=== PATIENT | male | born 1955 | race Caucasian/White ===

== ENCOUNTER 2017-12-07 16:58 | Inpatient (IN) ==
[2017-12-07 17:49] LABS: ABG Base Excess -1 mEq/L (-2 to 3); ABG HCO3 25 mEq/L (21-27); ABG Oxygen Saturation 97 % (95-98); ABG PCO2 49 mmHg (35-45); ABG PH 7.33 pH Units (7.32-7.45); ABG PO2 95 mmHg (85-104); ABG TCO2 27 mEq/L (20-26); Blood Gas Respiration Rate 16; Blood Gas VT 550 cc
[2017-12-07 18:44] LABS: Basophils % 0.2 %; Eosinophils % 0.1 %; Hemoglobin 14.1 g/dL (12.9-16.9); Immature Granulocytes % 0.6 % (0-4); Lymphocytes # 0.8 K/mcL (0.6-4.6); Lymphocytes % 5.7 %; Mean Corpuscular HGB Conc 34.4 g/dL (31.6-35.5); Mean Corpuscular Hemoglobin 29.3 pg (28.0-33.3); Mean Corpuscular Volume 85.1 fL (83.0-100.0); Mean Platelet Volume 8.8 fL (9.4-12.4); Monocytes # 0.9 K/mcL (0.0-1.3); Monocytes % 6.5 %; Neutrophils # 11.8 K/mcL (1.6-8.9); Platelet Count 171 K/mcL (140-400); Red Blood Count 4.82 M/mcL (4.19-5.50); Red Cell Distribution Width 13.3 % (11.5-14.5); Segmented Neutrophils % 86.9 %
[2017-12-07 18:48] LABS: VBG Ionized Calcium 1.03 mmol/L (1.15-1.35)
[2017-12-07] MEDS: Heparin 25,000 UNIT/500 ML D5W 25,000 UNIT/500 ML BAG IVC SCH (19:00)
[2017-12-07 19:01] LABS: BUN/Creatinine Ratio 15 (6-26); Blood Urea Nitrogen 18 mg/dL (8-23); Calcium 8.3 mg/dL (8.6-10.3); Carbon Dioxide 25 mEq/L (23-29); Chloride 110 mEq/L (98-107); Glucose 190 mg/dL (70-105); Magnesium 1.9 mg/dL (1.6-2.6); Osmolality,Calculated 301 (280-300); Phosphorous 3.2 mg/dL (2.7-4.5); Potassium 4.1 mEq/L (3.5-5.1); Sodium 142 mEq/L (136-145); eGFR For African Americans > 60 (> 60); eGFR For Non-African Americans > 60 (> 60)
[2017-12-07] MEDS ORDERED: Naloxone 0.4 MG/ML INJ IVP PRN (19:43)
[2017-12-07] MEDS ORDERED: Vecuronium 50 MG in 0.9 % Sodium Chloride 150 ML IVC SCH (20:00)
[2017-12-07] MEDS ORDERED: Amiodarone Premix 150 MG/100 ML BAG IVPB ONE (20:01)
--- NOTE | 2017-12-07 20:19 | Internal Med History&Physical ---
Date of Encounter: 12/08/17 Time of Encounter: 20:00 Internal Medicine - H&P: HPI Chief complaint: Cardiac arrest Admitted From: Hospital to Hospital Transfer Plans for Post Hospital Care: Home History of present illness: Mr. Duff is a 62 year old male History obtained via previous records in chart as patient is intubated, and family not available. Patent was found unresponsive earlier today, ACLS initiated in the field and patient was taken to [facility]. There he was found to be in PEA, an IO was placed and epinephrine was given. He was in atrial fibrillation in the 130s, and amiodarone was started. Cardiology was called and a review of his EKG was made. It was then agreed that the patient be transferred to [place] for further management. Patient is currently intubated and sedated. Past Med Surg Social Fam HX - Past Medical History Medical history: no medical history - Social History Smoking Status: Unknown if ever smoked Smokeless Tobacco Status: No Alcohol use: none Drug use: none Internal Medicine - H&P: Meds 3 Allergy/AdvReac Type Severity Reaction Status Date / Time codeine Allergy Rash Verified 12/07/17 21:28 All Systems PM: A 10-system review of systems was performed and is negative for pertinent findings except as documented above in the HPI. - Constitutional Vitals: Temp Pulse Resp BP Pulse Ox 97.4 F L 98 16 167/95 94 12/07/17 20:00 12/07/17 20:00 12/07/17 20:00 12/07/17 20:00 12/07/17 20:00 General appearance: Present: A&O X 0, no acute distress. Absent: cooperative - Head Head exam: Present: normal inspection - Eye Pupils: Present: mydriatic Additional comments: Left scleral cloudin and scarring - Respiratory Respiratory exam: Present: CTAB. Absent: respiratory distress, wheezes - Cardiovascular Cardiovascular exam: Present: irregular rhythm. Absent: diastolic murmur, systolic murmur - GI/Abdominal GI/Abdominal exam: Present: normal bowel sounds, soft. Absent: tenderness - Extremities Exam Extremities exam: Present: warm, radial pulses palpable and symmetrical. Absent : mottling, pedal edema - Skin Skin exam: Present: dry, normal color, warm Internal Med - H&P Results - Labs CBC & Chem 7: 12/07/17 21:07 12/08/17 04:35 Labs: Short CBC 12/07/17 Range/Units 18:30 WBC 13.6 H (4.3-11.1) K/mcL Hgb 14.1 (12.9-16.9) g/dL Hct 41.0 (37.5-50.1) % Plt Count 171 (140-400) K/mcL Neutrophils # 11.8 H (1.6-8.9) K/mcL BMP 12/07/17 18:30 Sodium 142 Potassium 4.1 Chloride 110 H Carbon Dioxide 25 BUN 18 Creatinine 1.21 Glucose 190 H Calcium 8.3 L - Impressions ITS Impressions Chest X-Ray 12/07/17 18:15 IMPRESSION: 1. New gastric tube with the tip not seen but likely in or beyond the gastric antrum. The sideport is within the distal gastric body. 2. Left pleural effusion with underlying left basilar atelectasis and/or pneumonia. 3. New right perihilar opacity potentially representing asymmetric edema or pneumonia. 4. Pulmonary vascular congestion and/or central vascular crowding. D/ / Mega Trimble MD / Mega Trimble MD Interpreting Provider: Mega Trimble MD Head CT 12/07/17 18:15 IMPRESSION: No acute intracranial abnormality. D/ / Mega Oliveira MD / Mega Oliveira MD Interpreting Provider: Mega Oliviera MD - Assessment and plan (1) Cardiac arrest Current Visit: No Status: Acute Assessment and plan: Patient found unresponsive, now intubated, sedated. Blood pressures stable at 152/95. Pulses felt in all extremities. Dr. Carrillo of Cardiology contacted, states that the patient does not meet criteria for emergent cath tonight. Unknown how long patient was unresponsive as it was unwitnessed. Will hold off on hypothermia protocol. Will work up other non-cardiac causes of cardiac arrest and check labs and get CT angio of chest to rule out PE. Cardiology will see in the morning Continue current management and monitoring. Heparin drip CT angio Ordered labs, follow up troponins (2) Atrial fibrillation Current Visit: No Status: Acute Assessment and plan: Patient now on Amiodarone, rate improved to 70-80s. Continue to monitor Follow up cardiology recommendations. Qualifiers: Atrial fibrillation type: unspecified Qualified Code(s): I48.91 - Unspecified atrial fibrillation (3) Aspiration pneumonia Current Visit: Yes Status: Acute Assessment and plan: As evidenced by patient's CT angiogram, patient does have lower lobe consolidation in basal right and left lungs, as well as nonspecific patchy ground glass attenuation in the left lung apex. Patient was found down, could have aspirated at that time. Start Unasyn IV, follow up blood cultures Qualifiers: Qualified Code(s): J69.0 - Pneumonitis due to inhalation of food and vomit (4) Leukocytosis Current Visit: Yes Status: Acute Assessment and plan: Could be secondary to possible aspiration pneumonia, white count increased from previous. Continue to monitor Start Unasyn Follow up blood cultures. Qualifiers: Qualified Code(s): D72.829 - Elevated white blood cell count, unspecified (5) Pleural effusion, left Current Visit: Yes Status: Acute Assessment and plan: Seen on chest x-ray, breath sounds clear to auscultation. Continue to monitor respiratory status. (6) DVT prophylaxis Current Visit: Yes Status: Acute Assessment and plan: Patient on heparin drip. - Time Spent With Patient Total time spent is greater than 50% in coordination of care (as documented) at patient's floor/unit and/or counseling patient: Greater than 35 minutes
[2017-12-07] MEDS ORDERED: Lacri-Lube 3.5 GM TUBE BOTH EYES PRN (20:31)
[2017-12-07] MEDS ORDERED: *HR* Heparin 5,000 UNIT/ML VIAL IVP ONE (21:17)
[2017-12-07] MEDS ORDERED: *HR* Heparin 5,000 UNIT/ML VIAL IVP PRN ×2 (21:17)
[2017-12-07 21:21] LABS: Basophils % 0.1 %; Eosinophils % 0.1 %; Hematocrit 44.3 % (37.5-50.1); Hemoglobin 15.5 g/dL (12.9-16.9); Immature Granulocytes % 0.7 % (0-4); Lymphocytes # 1.3 K/mcL (0.6-4.6); Lymphocytes % 8.5 %; Mean Corpuscular Hemoglobin 29.6 pg (28.0-33.3); Mean Corpuscular Volume 84.5 fL (83.0-100.0); Mean Platelet Volume 8.9 fL (9.4-12.4); Monocytes # 0.9 K/mcL (0.0-1.3); Neutrophils # 12.8 K/mcL (1.6-8.9); Platelet Count 173 K/mcL (140-400); Red Blood Count 5.24 M/mcL (4.19-5.50); Red Cell Distribution Width 13.3 % (11.5-14.5); Segmented Neutrophils % 84.6 %
[2017-12-07] MEDS: FentaNYL (PF) 1,000 MCG in 0.9 % Sodium Chloride 80 ML IVC SCH (21:21)
[2017-12-07] MEDS: Chlorhexidine Rinse 15 ML MOUTHWASH MM SCH (21:22)
[2017-12-07] MEDS ORDERED: Amiodarone Premix 360 MG/200 ML BAG IVC ONE (21:24)
[2017-12-07 21:28] LABS: Heparin anti-factor XA UFH 0.47 IU/mL (0.30-0.70)
[2017-12-07 21:29] LABS: INR 1.1; Prothrombin Time 12.1 Seconds (9.4-12.1)
[2017-12-07 21:37] LABS: BUN/Creatinine Ratio 15 (6-26); Blood Urea Nitrogen 16 mg/dL (8-23); Calcium 8.2 mg/dL (8.6-10.3); Carbon Dioxide 21 mEq/L (23-29); Chloride 110 mEq/L (98-107); Glucose 145 mg/dL (70-105); Magnesium 1.9 mg/dL (1.6-2.6); Osmolality,Calculated 296 (280-300); Phosphorous 2.6 mg/dL (2.7-4.5); Sodium 141 mEq/L (136-145); eGFR For African Americans > 60 (> 60); eGFR For Non-African Americans > 60 (> 60)
[2017-12-07] MEDS ORDERED: Isovue-370 500 ML INFUS..BTL IV ONE (21:40)
[2017-12-07 21:43] LABS: Troponin I 0.06 ng/mL (< 0.04)
[2017-12-07] MEDS: Amiodarone Premix 360 MG/200 ML BAG IVC SCH (22:19)
[2017-12-07] MEDS: Lacri-Lube 3.5 GM TUBE BOTH EYES SCH (23:27)
[2017-12-07 23:31] LABS: Amphetamine Screen,Urine Negative ng/mL (Cutoff=1000); Barbiturate Screen,Urine Negative ng/mL (Cutoff=200); Benzodiazepines Screen,Urine Negative ng/mL (Cutoff=200); Cannabinoid Screen,Urine Negative ng/mL (Cutoff = 50); Cocaine Screen,Urine Negative ng/mL (Cutoff= 300); Opiate Screen,Urine Negative ng/mL (Cutoff=300); Phencyclidine Screen,Urine Negative ng/mL (Cutoff=25)
[2017-12-08 04:33] LABS: ABG Base Excess 3 mEq/L (-2 to 3); ABG HCO3 28 mEq/L (21-27); ABG Oxygen Saturation 98 % (95-98); ABG PCO2 42 mmHg (35-45); ABG PH 7.44 pH Units (7.32-7.45); ABG PO2 95 mmHg (85-104); ABG TCO2 29 mEq/L (20-26); Blood Gas Modality ASSIST CONTROL; Blood Gas Respiration Rate 16; Blood Gas VT 550 cc
[2017-12-08] MEDS: Lacri-Lube 3.5 GM TUBE BOTH EYES SCH ×5 (04:37→21:22)
[2017-12-08] MEDS ORDERED: *HR* Labetalol 20 MG/4 ML SYRINGE IVP PRN (04:39)
[2017-12-08 04:49] LABS: VBG Ionized Calcium 0.98 mmol/L (1.15-1.35)
[2017-12-08 05:14] LABS: BUN/Creatinine Ratio 13 (6-26); Blood Urea Nitrogen 12 mg/dL (8-23); Calcium 8.2 mg/dL (8.6-10.3); Carbon Dioxide 23 mEq/L (23-29); Chloride 105 mEq/L (98-107); Creatine Kinase 115 Units/L (30-223); Glucose 169 mg/dL (70-105); Magnesium 2.2 mg/dL (1.6-2.6); Osmolality,Calculated 292 (280-300); Potassium 3.5 mEq/L (3.5-5.1); Sodium 139 mEq/L (136-145); eGFR For African Americans > 60 (> 60); eGFR For Non-African Americans > 60 (> 60)
--- NOTE | 2017-12-08 07:35 | Pulmonology Consult Note ---
<GeorginaErlinda espinosa M - Last Filed: 12/08/17 15:59> Date of Encounter: 12/08/17 Medications and Allergies Unable To Obtain [Unable to Obtain] 12/08/17 [History] 3 Allergy/AdvReac Type Severity Reaction Status Date / Time codeine Allergy Rash Verified 12/07/17 21:28 All Systems: The remainder of the systems were reviewed and are negative Physical Examination Vital Signs: Vital Signs, Last 4 Hours Pulse Resp BP Pulse Ox 12/08/17 15:44 70 12/08/17 15:00 64 16 83/56 97 12/08/17 14:00 64 16 93/57 97 12/08/17 13:05 16 88/55 94 12/08/17 13:00 65 16 97/59 97 12/08/17 12:00 67 16 88/55 97 Ventilator Settings Ventilator Settings: Ventilator Settings, Last 8 Hours Ventilator Tidal Volume 550 Setting Ventilator Tidal Volume 550 Setting Ventilator Tidal Volume 550 Setting Ventilator Tidal Volume 550 Setting Ventilator Tidal Volume 550 Setting Ventilator Tidal Volume 550 Setting Ventilator Tidal Volume 550 Setting Ventilator Tidal Volume 550 Setting Ventilator Tidal Volume 550 Setting Ventilator Tidal Volume 550 Setting Ventilator Respiratory Rate 16 Setting Ventilator Respiratory Rate 16 Setting Ventilator Respiratory Rate 16 Setting Ventilator Respiratory Rate 16 Setting Ventilator Respiratory Rate 16 Setting Ventilator Respiratory Rate 16 Setting Ventilator Respiratory Rate 16 Setting Ventilator Respiratory Rate 16 Setting Ventilator Respiratory Rate 16 Setting Ventilator Respiratory Rate 16 Setting Actual Respiratory Rate 16 Actual Respiratory Rate 16 Actual Respiratory Rate 16 Actual Respiratory Rate 16 Actual Respiratory Rate 16 Actual Respiratory Rate 16 Actual Respiratory Rate 16 Actual Respiratory Rate 16 Actual Respiratory Rate 16 Actual Respiratory Rate 16 Positive End Expiratory 5 Pressure Positive End Expiratory 5 Pressure Positive End Expiratory 5 Pressure Positive End Expiratory 5 Pressure Positive End Expiratory 5 Pressure Positive End Expiratory 5 Pressure Positive End Expiratory 5 Pressure Positive End Expiratory 5 Pressure Positive End Expiratory 5 Pressure Positive End Expiratory 5 Pressure Peak Inspiratory Airway 22 Pressure Peak Inspiratory Airway 22 Pressure Peak Inspiratory Airway 25 Pressure Peak Inspiratory Airway 22 Pressure Peak Inspiratory Airway 22 Pressure Peak Inspiratory Airway 24 Pressure Peak Inspiratory Airway 22 Pressure Peak Inspiratory Airway 22 Pressure Peak Inspiratory Airway 25 Pressure Peak Inspiratory Airway 22 Pressure Results - Laboratory Findings CBC and BMP: 12/07/17 21:07 12/08/17 04:35 ABG ABG pH 7.44 pH Units (7.32-7.45) 12/08/17 04:27 ABG pCO2 42 mmHg (35-45) 12/08/17 04:27 ABG pO2 95 mmHg (85-104) 12/08/17 04:27 ABG O2 Saturation 98 % (95-98) 12/08/17 04:27 PT/INR, D-dimer PT 12.1 Seconds (9.4-12.1) 12/07/17 21:07 Abnormal lab findings: Abnormal lab results WBC 15.1 K/mcL (4.3-11.1) H 12/07/17 21:07 MPV 8.9 fL (9.4-12.4) L 12/07/17 21:07 Neutrophils # 12.8 K/mcL (1.6-8.9) H 12/07/17 21:07 APTT 100.7 Seconds (26.0-36.0) H D 12/07/17 18:30 ABG HCO3 28 mEq/L (21-27) H 12/08/17 04:27 ABG Total CO2 29 mEq/L (20-26) H 12/08/17 04:27 Glucose 169 mg/dL (70-105) H 12/08/17 04:35 POC Glucose 144 mg/dL (70-99) H 12/08/17 11:54 Calcium 8.2 mg/dL (8.6-10.3) L 12/08/17 04:35 Venous Ioniz Calcium 1.08 mmol/L (1.15-1.35) L 12/08/17 12:47 AST 79 Units/L (13-39) H 12/08/17 04:35 ALT 100 Units/L (7-52) H 12/08/17 04:35 Troponin I 0.07 ng/mL (< 0.04) H* 12/08/17 10:22 Serum Total Protein 6.1 g/dL (6.4-8.9) L 12/08/17 04:35 Globulin 2.1 g/dL (2.4-3.5) L 12/08/17 04:35 - Microbiology Findings Microbiology Findings: Microbiology, Last 48 Hours 12/08/17 07:03 Blood Culture - Preliminary Peripheral Venipuncture Culture is incubating and being continuously monitored for growth. Final report to follow. 12/08/17 07:03 Blood Culture - Preliminary Peripheral Venipuncture Culture is incubating and being continuously monitored for growth. Final report to follow. - Clinical Findings Intake & Output: Intake & Output 12/07/17 12/08/17 12/08/17 23:59 07:59 15:59 Intake Total 993 / 993 1884 / 1884 Output Total 800 / 800 1275 / 1275 3985 / 3985 Balance -800 / -800 -282 / -282 -2101 / -2101 Weight 76 kg 76 kg Consult Discharge Plan - Plan Referrals: NONE,PCP [Primary Care Provider] - - Attending Attestation I examined this patient and my medical decision-making was reviewed with the Resident Physician. I agree with the documented findings, disposition and treatment plan as described except to the extent set forth below. Patient seen and examined. Labs, radiology, chart personally reviewed. 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 Neurology consult that. EEG done. Pulmonary: Acceptable oxygenation and ventilation and patient is not breathing over the vent which is very concerning. No changes needed. Cardiovascular: I have discussed with the cardiology team regarding in my opinion cardiac catheterization and deferred final decision to have cardiac catheterization to cardiology team. Patient is hypotensive again suspect cardiac in nature and central line was placed and vasopressor started mainly for maintaining perfusion for the organs if patient will end up with the continuation. LOOP is aware of patient. GI: Nutrition per dietary and GI prophylaxis per routine Heme: DVT prophylaxis per routine ID: I do not feel this is infectious in nature Renal; urine out put and renal funtion reviewed Endorcine: blood glucose is monitored Lines: all lines checked and no evidence of infections Skin: skin care to prevent pressure ulcers per nursing routine care I spent 35 min of Critical Care time with this patient. It involved decision making of high complexity to assess, manipulate, and support vital organ system failure and/or to prevent further life threatening deterioration of the patient' s condition. The time involved in the performance of separately reportable procedures was not counted toward critical care time. <Barbara Epstein - Last Filed: 12/08/17 16:42> Date of Encounter: 12/08/17 Time of Encounter: 08:42 Assessment and Plan (1) Cardiac arrest Current Visit: No Status: Acute Patient is a 62-year-old male who was found unresponsive in the field He was found to be in pulseless electrical activity and ACLS protocol was started and he was converted into A. fib Transfered to [facility], did not meet criteria for cardiac catheterization on arrival CTA chest was negative for PE Patient was started on a heparin and amiodarone drip overnight Was not started on hypothermia protocol, patient was outside window Per cardiology recommendations we will wait for the EEG results to decide whether or not to perform cardiac catheterization (2) Encephalopathy Current Visit: Yes Status: Acute Patient is currently not on sedation or paralytics and remains unresponsive to any stimuli Pupils are fixed and dilated, no reflexes [place] Coma Scale of 3 Consulted neurology and obtain EEG EEG results show a pattern consistent with diffuse brain injury, most likely anoxic, versus a pharmacologically induced pattern. At the time of the EEG patient was completely off of sedation, therefore need to confirm with neurology if the EEG findings are more consistent with anoxic brain injury. (3) Acute respiratory failure Current Visit: Yes Status: Acute Patient was found unresponsive and intubated Currently on a ventilator Qualifiers: Respiratory failure complication: unspecified whether with hypoxia or hypercapnia Qualified Code(s): J96.00 - Acute respiratory failure, unspecified whether with hypoxia or hypercapnia (4) Atrial fibrillation Current Visit: No Status: Acute Rate is in the 80s, irregular rhythm Currently on amiodarone drip Qualifiers: Atrial fibrillation type: unspecified Qualified Code(s): I48.91 - Unspecified atrial fibrillation (5) Aspiration pneumonia Current Visit: Yes Status: Acute Chest x-ray and CT findings show atelectasis versus possible pneumonia since patient was found unresponsive there is concern for possible aspiration Currently treating with Unasyn Follow-up blood cultures Qualifiers: Qualified Code(s): J69.0 - Pneumonitis due to inhalation of food and vomit (6) Leukocytosis Current Visit: Yes Status: Acute Elevated white blood cell count possibly from a stress reaction secondary to cardiac arrest versus aspiration pneumonia Currently treating with Unasyn and obtain blood cultures Continue to monitor CBC Qualifiers: Qualified Code(s): D72.829 - Elevated white blood cell count, unspecified (7) DVT prophylaxis Current Visit: Yes Status: Acute Currently on a heparin drip History of Present Illness Consult date: 12/08/17 Requesting physician: Genie Spence Reason for consult: other (Ventilator, cardiac arrest) Chief complaint: Cardiac arrest History of present illness: Mr. Duff is a 62-year-old male who was found unresponsive in the field. Patient was intubated and taken to [place] emergency department. ACLS was initiated for pulseless electrical activity and after receiving epinephrine was converted into atrial fibrillation. Amiodarone was given and patient was transferred to [facility] for higher level of care. Per cardiology, the patient did not meet criteria for catheterization last night, and the patient was outside the window for hypothermia protocol, thus the patient never received propofol or any paralytics. Patient has remained overnight in the ICU on a heparin and amiodarone drip, fentanyl was initiated however patient became hypotensive and that was discontinued. CT head was obtained and was normal. Chest x-ray and CTA chest was acquired as well, there was no evidence of a pulmonary embolus, however atelectasis versus possible pneumonia was identified. Given patient's risk for aspiration the patient was started on Unasyn. Patient has remained unresponsive to any stimuli overnight while on the ventilator with a GCS of 3. Past Med Surg Social Fam HX - Past Medical History Medical history: no medical history - Social History Smoking Status: Unknown if ever smoked Smokeless Tobacco Status: No Alcohol use: none Drug use: none ROS unobtainable: due to endotracheal tube, due to mental status, other (GCS 3) All Systems: The remainder of the systems were reviewed and are negative Physical Examination Vital Signs: Vital Signs, Last 4 Hours Pulse Resp BP Pulse Ox 12/08/17 06:13 16 96 12/08/17 06:00 68 16 144/81 96 12/08/17 05:00 74 16 149/80 95 12/08/17 04:00 73 16 159/76 96 12/08/17 03:43 16 94 General appearance: comatose Eyes: other (Pupils are fixed and dilated, left eye is cloudy) ENT: other (Intubated) Effort: other Auscultation: bilateral: clear (Clear to auscultation on the ventilator) Cardiovascular: irregular rhythm, other (No murmur appreciated) Gastrointestinal: normoactive bowel sounds, soft, non-distended Integumentary: normal Extremities: no cyanosis, no edema, no clubbing Musculoskeletal: no deformities unable to assess due to mental status, other (GCS 3) Ventilator Settings Ventilator Settings: Ventilator Settings, Last 8 Hours Ventilator Tidal Volume 550 Setting Ventilator Tidal Volume 550 Setting Ventilator Tidal Volume 550 Setting Ventilator Tidal Volume 550 Setting Ventilator Tidal Volume 550 Setting Ventilator Tidal Volume 550 Setting Ventilator Tidal Volume 550 Setting Ventilator Tidal Volume 550 Setting Ventilator Tidal Volume 550 Setting Ventilator Tidal Volume 550 Setting Ventilator Tidal Volume 550 Setting Ventilator Tidal Volume 550 Setting Ventilator Respiratory Rate 16 Setting Ventilator Respiratory Rate 16 Setting Ventilator Respiratory Rate 16 Setting Ventilator Respiratory Rate 16 Setting Ventilator Respiratory Rate 16 Setting Ventilator Respiratory Rate 16 Setting Ventilator Respiratory Rate 16 Setting Ventilator Respiratory Rate 16 Setting Ventilator Respiratory Rate 16 Setting Ventilator Respiratory Rate 16 Setting Ventilator Respiratory Rate 16 Setting Ventilator Respiratory Rate 16 Setting Actual Respiratory Rate 16 Actual Respiratory Rate 16 Actual Respiratory Rate 16 Actual Respiratory Rate 16 Actual Respiratory Rate 16 Actual Respiratory Rate 16 Actual Respiratory Rate 16 Actual Respiratory Rate 16 Actual Respiratory Rate 16 Actual Respiratory Rate 16 Actual Respiratory Rate 16 Positive End Expiratory 5 Pressure Positive End Expiratory 5 Pressure Positive End Expiratory 5 Pressure Positive End Expiratory 5 Pressure Positive End Expiratory 5 Pressure Positive End Expiratory 5 Pressure Positive End Expiratory 5 Pressure Positive End Expiratory 5 Pressure Positive End Expiratory 5 Pressure Positive End Expiratory 5 Pressure Positive End Expiratory 5 Pressure Positive End Expiratory 5 Pressure Peak Inspiratory Airway 23 Pressure Peak Inspiratory Airway 22 Pressure Peak Inspiratory Airway 22 Pressure Peak Inspiratory Airway 22 Pressure Peak Inspiratory Airway 24 Pressure Peak Inspiratory Airway 22 Pressure Peak Inspiratory Airway 22 Pressure Peak Inspiratory Airway 26 Pressure Peak Inspiratory Airway 22 Pressure Peak Inspiratory Airway 22 Pressure Peak Inspiratory Airway 26 Pressure Results - Laboratory Findings CBC and BMP: 12/07/17 21:07 12/08/17 04:35 ABG ABG pH 7.44 pH Units (7.32-7.45) 12/08/17 04:27 ABG pCO2 42 mmHg (35-45) 12/08/17 04:27 ABG pO2 95 mmHg (85-104) 12/08/17 04:27 ABG O2 Saturation 98 % (95-98) 12/08/17 04:27 PT/INR, D-dimer PT 12.1 Seconds (9.4-12.1) 12/07/17 21:07 Abnormal lab findings: Abnormal lab results WBC 15.1 K/mcL (4.3-11.1) H 12/07/17 21:07 MPV 8.9 fL (9.4-12.4) L 12/07/17 21:07 Neutrophils # 12.8 K/mcL (1.6-8.9) H 12/07/17 21:07 APTT 100.7 Seconds (26.0-36.0) H D 12/07/17 18:30 ABG HCO3 28 mEq/L (21-27) H 12/08/17 04:27 ABG Total CO2 29 mEq/L (20-26) H 12/08/17 04:27 Glucose 169 mg/dL (70-105) H 12/08/17 04:35 POC Glucose 171 mg/dL (70-99) H 12/07/17 19:54 Calcium 8.2 mg/dL (8.6-10.3) L 12/08/17 04:35 Venous Ioniz Calcium 0.98 mmol/L (1.15-1.35) L 12/08/17 04:46 Troponin I 0.10 ng/mL (< 0.04) H* 12/08/17 04:35 - Clinical Findings Intake & Output: Intake & Output 12/07/17 12/07/17 12/08/17 15:59 23:59 07:59 Intake Total 893 / 893 Output Total 800 / 800 1100 / 1100 Balance -800 / -800 -207 / -207 Weight 76 kg 76 kg
[2017-12-08] MEDS ORDERED: Vecuronium 50 MG in 0.9 % Sodium Chloride 200 ML IVC SCH (07:45)
[2017-12-08] MEDS: Ampicillin/Sulbactam 3,000 MG in 0.9 % Sodium Chloride Mini Bag 100 ML IVPB SCH ×3 (08:45→21:21)
[2017-12-08] MEDS: Chlorhexidine Rinse 15 ML MOUTHWASH MM SCH ×2 (09:07→21:21)
[2017-12-08] MEDS: Pantoprazole 40 MG VIAL IVP SCH (09:12)
--- NOTE | 2017-12-08 09:14 | Neurology - Consult Note ---
<Agapito Molinain R - Last Filed: 12/08/17 14:18> Date of Encounter: 12/08/17 Time of Encounter: 09:07 Assessment and Plan (1) Unresponsive state Current Visit: Yes Status: Acute Given history and exam findings are concerning for brain likely from anoxic injury. Patient body temperature is within normal range, urine drug is negative for substances. Recommend EEG and repeat neuro exam at 24 hr andressa, at which time further determination of brain can be made. History of Present Illness HPI: Mr. Duff is a 62 year old male found unresponsive by coworkers yesterday afternoon, last known well was one hour prior being found unresponsive. Patient was found to be in cardiac arrest and taken to [facility] ED. Resuscitation efforts resulted in rhythm of atrial fibrillation and patient transferred to [facility] ICU. Has remained unresponsive since discovery, alternated hypotensive and hypertensive episodes. Little past medical history to this point is available until family arrives. Initial head CT did not find any acute process. Concern for possible anoxic brain injury and brain . Past Med Surg Social Fam HX - Past Medical History Medical history: no medical history - Social History Smoking Status: Unknown if ever smoked Smokeless Tobacco Status: No Alcohol use: none Drug use: none Medications and Allergies Unable To Obtain [Unable to Obtain] 12/08/17 [History] 3 Allergy/AdvReac Type Severity Reaction Status Date / Time codeine Allergy Rash Verified 12/07/17 21:28 ROS unobtainable: due to endotracheal tube, due to mental status All Systems: The remainder of the systems were reviewed and are negative Physical Examination - Vital Signs Vital Signs: Initial Vital Signs Resp Pulse Ox 16 94 12/07/17 17:30 12/07/17 17:30 - Exam Exam: Patient is not awake or alert, does not respond to verbal or painful stimuli in all four extremities, GCS 3. Endotrachial tube in place, not over breathing the ventilator. Pupils are equal, round, fixed and dilated with no response to bright light. Left cataract observed. Corneal and glabellar reflexes absent. No occulocephalic reflex response. Muscle tone is flaccid. Babinski is down going. Results - Laboratory Findings CBC and BMP: 12/07/17 21:07 12/08/17 04:35 Abnormal lab findings: Abnormal lab results WBC 15.1 K/mcL (4.3-11.1) H 12/07/17 21:07 MPV 8.9 fL (9.4-12.4) L 12/07/17 21:07 Neutrophils # 12.8 K/mcL (1.6-8.9) H 12/07/17 21:07 APTT 100.7 Seconds (26.0-36.0) H D 12/07/17 18:30 ABG HCO3 28 mEq/L (21-27) H 12/08/17 04:27 ABG Total CO2 29 mEq/L (20-26) H 12/08/17 04:27 Glucose 169 mg/dL (70-105) H 12/08/17 04:35 POC Glucose 171 mg/dL (70-99) H 12/07/17 19:54 Calcium 8.2 mg/dL (8.6-10.3) L 12/08/17 04:35 Venous Ioniz Calcium 0.98 mmol/L (1.15-1.35) L 12/08/17 04:46 Troponin I 0.10 ng/mL (< 0.04) H* 12/08/17 04:35 Consult Discharge Plan - Plan Referrals: NONE,PCP [Primary Care Provider] - <Munira Mtz I - Last Filed: 12/08/17 16:20> Date of Encounter: 12/08/17 Assessment and Plan (1) Encephalopathy Current Visit: Yes Status: Acute Pt was seen and examined, my medical decision was reviewed with the Resident Physician, I agree with the documented findings, disposition and treatment plas as described except to the extent set forth below This is a 62 years old male who admitted from [facility] ED after being found by unresponsive. ACLS intiated for PEA and patient was intubated and placed on the Vent. According to records (no witnesses or family available). Patient transfeered to ICU remains intubated on propofol low-dose. Since admission did not have any brainstem reflexes as per records on neurological examination Patient is unresponsive to any verbal stimuli, or to any deep pain Pupils are fixed and dilated Corneals are negative Oculocephalic negative No breathing over the vent No withdrawal grimaces or any movement to the deep pain Reflexes hyperactive symmetrical and downgoing toes bilaterally Impression Hypoxic anoxic encephalopathy Status post cardiac arrest PLAN: At the moment patient did not have any brainstem reflexes suspected that may have suffered significant hypoxic anoxic damage to the brain especially the brainstem reflexes are not present on examination. Suggest to continue monitor for any cardiac arrhythmias or any other abnormalities continue current treatment Initial CT of the head is negative may need to do an MRI vent clinically more stable. We will get an EEG to make sure there is no underlying interictal abnormality and in particularly no nonconvulsive seizure activity Other treatment is as per primary team Plan discuss with the ICU team Munira Mtz MD History of Present Illness HPI: Mr. Duff is a 62 year old male ROS unobtainable: due to endotracheal tube, due to mental status All Systems: The remainder of the systems were reviewed and are negative Physical Examination - Vital Signs Vital Signs: Initial Vital Signs Resp Pulse Ox 16 94 12/07/17 17:30 12/07/17 17:30 Results - Laboratory Findings CBC and BMP: 12/07/17 21:07 12/08/17 04:35 Abnormal lab findings: Abnormal lab results WBC 15.1 K/mcL (4.3-11.1) H 12/07/17 21:07 MPV 8.9 fL (9.4-12.4) L 12/07/17 21:07 Neutrophils # 12.8 K/mcL (1.6-8.9) H 12/07/17 21:07 APTT 100.7 Seconds (26.0-36.0) H D 12/07/17 18:30 ABG HCO3 28 mEq/L (21-27) H 12/08/17 04:27 ABG Total CO2 29 mEq/L (20-26) H 12/08/17 04:27 Glucose 169 mg/dL (70-105) H 12/08/17 04:35 POC Glucose 144 mg/dL (70-99) H 12/08/17 11:54 Calcium 8.2 mg/dL (8.6-10.3) L 12/08/17 04:35 Venous Ioniz Calcium 1.08 mmol/L (1.15-1.35) L 12/08/17 12:47 AST 79 Units/L (13-39) H 12/08/17 04:35 ALT 100 Units/L (7-52) H 12/08/17 04:35 Troponin I 0.07 ng/mL (< 0.04) H* 12/08/17 10:22 Serum Total Protein 6.1 g/dL (6.4-8.9) L 12/08/17 04:35 Globulin 2.1 g/dL (2.4-3.5) L 12/08/17 04:35
[2017-12-08 09:56] LABS: Alanine Aminotransferase 100 Units/L (7-52); Albumin/Globulin Ratio 1.9 (1.1-2.2); Alkaline Phosphatase 51 Units/L (34-104); Aspartate Amino Transferase 79 Units/L (13-39); Bilirubin,Direct 0.1 mg/dL (0.0-0.2); Bilirubin,Indirect 0.4 mg/dL (0.0-1.2); Bilirubin,Total 0.5 mg/dL (0.3-1.0); Globulin 2.1 g/dL (2.4-3.5); Total Protein 6.1 g/dL (6.4-8.9)
[2017-12-08] MEDS ORDERED: Ringers Solution, Lactated 1,000 ML IVC ONE (10:17)
[2017-12-08] MEDS: Amiodarone Premix 360 MG/200 ML BAG IVC SCH (10:51)
--- NOTE | 2017-12-08 11:11 | Cardiology Consult Note ---
Date of Encounter: 12/08/17 Time of Encounter: 11:08 Assessment and Plan (1) Cardiac arrest Current Visit: No Status: Acute Improved EKG on arrival to [facility] without significant ischemic changes. Dr Carrillo IC educational programming director reviewed EKGs and findings. (2) Atrial fibrillation Current Visit: No Status: Acute Seems to be new onset but no records or family to obtain history from. Continue rate control and IV heparin if not contraindicated. Qualifiers: Atrial fibrillation type: unspecified Qualified Code(s): I48.91 - Unspecified atrial fibrillation Discussion w patient/family: The assessment and plan as outlined above was discussed with the patient and/or family members who expressed understanding and agreement. All questions were answered. Thank you for involving us in the care of your patient. Please call with any questions. History of Present Illness Consult date: 12/08/17 (Late Entry ) Consult reason: Cardiac Arrest Chief complaint: Sedated on the vent History of present illness: Mr. Duff is a 62 year old male sedated on the vent presents from [place] ED after being found by unresponsive. ACLS intiated for PEA and patient was intubated and placed on the Vent. According to records (no witnesses or family available). Patient stabilized with adequate BP not needing pressors or inotropes. EKG post resuscitation with artifact but obvious afib with ST changes concerning for posterior ischemia. Patient transfeered to ICU for further evaluation and a repeat EKG revealed significant improvement of ST changes. Past Med Surg Social Fam HX - Past Medical History Medical history: no medical history - Social History Smoking Status: Unknown if ever smoked Smokeless Tobacco Status: No Alcohol use: none Drug use: none Medications and Allergies 3 Allergy/AdvReac Type Severity Reaction Status Date / Time codeine Allergy Rash Verified 12/07/17 21:28 All Systems Review: The remainder of the systems were reviewed and are negative Physical Examination Vital Signs, Last 4 Hours Temp Pulse Resp BP Pulse Ox 12/08/17 09:57 84 16 72/50 96 12/08/17 09:46 16 95/65 96 12/08/17 09:00 84 16 95/65 96 12/08/17 08:32 98.3 F 12/08/17 07:50 87 16 134/74 94 12/08/17 07:28 16 134/74 95 General: Conversant (Inutubated on the Vent unresponsive to verbal and mechanical stimulation), No Apparent Distress HEENT: Atraumatic, Normocephaly, Mucus Membranes Moist Neck: No JVD, Normal carotid pulses Cardiac: Reg Rate and Rhythm (Irregular irregular rythm), Normal S1 and S2, No Murmur Lungs: Normal Breath Sounds, No Wheeze, Rales, Rhonchi Neuro: Alert and responsive (unresponsive ), No focal deficits noted Abdomen: Soft, Non-Tender Skin: No rashes noted on visualized skin Musculoskeletal: No Chest Wall Tenderness Extremities: No Clubbing, No Cyanosis, No Edema, Normal Pulses Results 12/07/17 21:07 12/08/17 04:35 Lab Results 12/07/17 12/07/17 12/07/17 18:30 18:30 18:30 WBC 13.6 H Hgb 14.1 Hct 41.0 Plt Count 171 INR APTT 100.7 H D Sodium 142 Potassium 4.1 Chloride 110 H Carbon Dioxide 25 BUN 18 Creatinine 1.21 Glucose 190 H Calcium 8.3 L Magnesium 1.9 Total Bilirubin AST ALT Alkaline Phosphatase Troponin I 12/07/17 12/07/17 12/07/17 21:07 21:07 21:07 WBC 15.1 H Hgb 15.5 Hct 44.3 Plt Count 173 INR 1.1 APTT Sodium 141 Potassium 4.0 Chloride 110 H Carbon Dioxide 21 L BUN 16 Creatinine 1.04 Glucose 145 H Calcium 8.2 L Magnesium 1.9 Total Bilirubin AST ALT Alkaline Phosphatase Troponin I 12/07/17 12/08/17 12/08/17 21:07 04:35 10:22 WBC Hgb Hct Plt Count INR APTT Sodium 139 Potassium 3.5 Chloride 105 Carbon Dioxide 23 BUN 12 Creatinine 0.93 Glucose 169 H Calcium 8.2 L Magnesium 2.2 Total Bilirubin 0.5 AST 79 H ALT 100 H Alkaline Phosphatase 51 Troponin I 0.06 H* 0.10 H* 0.07 H* Consult Discharge Plan - Plan Referrals: NONE,PCP [Primary Care Provider] -
--- NOTE | 2017-12-08 12:01 | Procedure Note ---
<Barbara Epstein N - Last Filed: 12/08/17 11:59> Date of procedure: 12/08/17 Pre-op diagnosis: Hypotension Post-op diagnosis: same Procedure: Central Line Procedure Note: Central Venous Catheter Insertion Indication:[Hypotension] Attending Physician:[Dr. Brady] Masonry Contractor: [Dr. Barbara Epstein, DO] Indication: This is a 62 year-old male with hypotension Consent: Detailed explanation of the procedure, treatment options, risks including but not limited to infection and bleeding, and benefits were explained to the patient's family via phone and signed by 2 physicians. A written informed consent was obtained. Technique: A time out was preformed identifying the correct procedure, the correct location with the nursing staff. The right groin was prepped with 2% chlorhexidine and draped with a full length sterile sheet in the usual fashion. The femoral vein was accessed under ultrasound guidance with an 18 gauge thin wall needle. A triple lumen was inserted via the seldinger technique. Blood was withdrawn from all lumens and flushed with normal saline. The catheter was sutured in place and a sterile dressing was applied over the site prior to removal of drapes. The patient tolerated the procedure well and there were no complications. EBL: Minimal Complication: None Anesthesia: IV sedation Was there an assistant spa manager present: Yes Energy Assistant: Giuseppe James Estimated blood loss (cc): 5 Specimen: None Pathology: none sent Condition: critical Disposition: ICU <Erlinda Brady M - Last Filed: 12/08/17 15:51> Procedure: I examined this patient and my medical decision-making was reviewed with the Resident Physician. I agree with the documented findings, disposition and treatment plan as described except to the extent set forth below. I have personally supervised the resident placing central line without immediate complications.
[2017-12-08 12:51] LABS: VBG Ionized Calcium 1.08 mmol/L (1.15-1.35)
--- NOTE | 2017-12-08 16:24 | EEG/EMG/Oth Biometrics Report ---
EEG Procedure Report Date of procedure: 12/08/17 EEG Procedure: Routine EEG Procedure Note: Routine 21-channel digital EEG was obtained to rule out any seizure activity or focal abnormalities on patient who is intubated and sedated. FINDINGS: Background rhythm during awake stage shows poorly organized, low voltage in the anterior and posterior regions, without any reactivity continued through out the whole study, no obvious epileptiform discharges or any other abnormal activity recorded except some pulse artifact. clinical Interpretation: Abnormal EEG.this pattern of electrographic activity is normally seen in the patient with diffuse brain injury; most commonly this is anoxic, as seen from prolonged resuscitation, but at the same time similar pattern could be pharmacologically induced. Typical agents are versed drip, phenobarbitol, or propofol. No evidence of any seizure activity. Clinical correlation with repeat studies suggested if clinically warranted when patient is off sedation completely.
[2017-12-08] MEDS: Norepinephrine 4 MG in D5% in Water 250 ML IVC SCH (20:20)
[2017-12-08] MEDS: FentaNYL (PF) 1,000 MCG in 0.9 % Sodium Chloride 80 ML IVC SCH (20:21)
[2017-12-08] MEDS: Heparin 25,000 UNIT/500 ML D5W 25,000 UNIT/500 ML BAG IVC SCH (21:21)
[2017-12-09] MEDS: Lacri-Lube 3.5 GM TUBE BOTH EYES SCH ×6 (00:20→20:16)
[2017-12-09] MEDS: Amiodarone Premix 360 MG/200 ML BAG IVC SCH ×2 (02:30→17:25)
[2017-12-09] MEDS: Ampicillin/Sulbactam 3,000 MG in 0.9 % Sodium Chloride Mini Bag 100 ML IVPB SCH ×4 (03:06→20:16)
[2017-12-09 03:28] LABS: Basophils % 0.4 %; Eosinophils % 0.7 %; Hematocrit 44.3 % (37.5-50.1); Hemoglobin 15.3 g/dL (12.9-16.9); Immature Granulocytes % 0.5 % (0-4); Lymphocytes % 13.3 %; Mean Corpuscular HGB Conc 34.5 g/dL (31.6-35.5); Mean Corpuscular Volume 83.9 fL (83.0-100.0); Mean Platelet Volume 8.9 fL (9.4-12.4); Platelet Count 186 K/mcL (140-400); Red Blood Count 5.28 M/mcL (4.19-5.50); Red Cell Distribution Width 13.6 % (11.5-14.5); Segmented Neutrophils % 80.1 %
[2017-12-09 03:29] LABS: Basophils # 0.1 K/mcL (0.0-0.2); Eosinophils # 0.1 K/mcL (0.0-0.6); Lymphocytes # 1.5 K/mcL (0.6-4.6); Monocytes # 0.6 K/mcL (0.0-1.3); Neutrophils # 9.3 K/mcL (1.6-8.9)
[2017-12-09 04:01] LABS: BUN/Creatinine Ratio 10 (6-26); Blood Urea Nitrogen 14 mg/dL (8-23); Carbon Dioxide 24 mEq/L (23-29); Chloride 125 mEq/L (98-107); Glucose 127 mg/dL (70-105); Magnesium 2.7 mg/dL (1.6-2.6); Osmolality,Calculated 320 (280-300); Potassium 3.8 mEq/L (3.5-5.1); Sodium 154 mEq/L (136-145); eGFR For African Americans > 60 (> 60); eGFR For Non-African Americans 54 (> 60)
[2017-12-09 04:18] LABS: Phosphorous < 1.0 mg/dL (2.7-4.5)
[2017-12-09] MEDS ORDERED: Potassium Phosphate 44 MEQ in 0.9 % Sodium Chloride 250 ML IVPB PRN (04:18)
[2017-12-09 04:29] LABS: ABG Base Excess 3 mEq/L (-2 to 3); ABG HCO3 26 mEq/L (21-27); ABG Oxygen Saturation 95 % (95-98); ABG PCO2 35 mmHg (35-45); ABG PH 7.48 pH Units (7.32-7.45); ABG PO2 70 mmHg (85-104); ABG TCO2 28 mEq/L (20-26); Blood Gas Modality ASSIST CONTROL; Blood Gas Respiration Rate 16; Blood Gas VT 550 cc
[2017-12-09] MEDS ORDERED: Ringers Solution, Lactated 1,000 ML IVC ONE (05:38)
[2017-12-09] MEDS ORDERED: Ringers Solution, Lactated 1,000 ML ONE (05:40)
[2017-12-09] MEDS: Norepinephrine 4 MG in D5% in Water 250 ML IVC SCH ×2 (05:45→10:35)
[2017-12-09] MEDS: Chlorhexidine Rinse 15 ML MOUTHWASH MM SCH ×2 (07:52→20:16)
[2017-12-09] MEDS: Pantoprazole 40 MG VIAL IVP SCH (07:52)
--- NOTE | 2017-12-09 08:36 | Neurology Progress Note ---
Date of Encounter: 12/09/17 Time of Encounter: 08:15 Assessment and Plan (1) Anoxic brain injury Current Visit: Yes Status: Acute This patient was been more than 2 days after cardiopulmonary arrest without any brainstem reflexes No change in his neurological status on examination as compared to yesterday He is been off sedation more than 24 hours Urine tox was negative No sign of RN SOCIAL WORK infection CT of head is negative for any acute infarct or bleed EEG did not show any seizure activity Considering his neurological status I did not see any improvement and more than 24 hours This quite likely that patient has suffered the reversible brainstem damage and chances of any reasonable neurological recovery is rare Discussed with the Dr Vanegas, in ICU his exam seem to concer my neurological exam, he will be disucssing with Pt daughter who is out of state and is POA about withdrawal of support. (2) Cardiac arrest Current Visit: No Status: Acute Subjective Interval history: Patient seen as an follow-up he remained intubated on multiple pressors no significant change in his neurological status no brainstem reflexes blood pressure remained on the stable. EEG did not demonstrate any nonconvulsive seizures no response to any external stimuli Objective - Constitutional Vitals: Temp Pulse Resp BP Pulse Ox 96.6 F L 78 16 77/56 92 12/09/17 07:39 12/09/17 07:00 12/09/17 07:15 12/09/17 07:15 12/09/17 07:15 - Expanded Neurological Exam Coma Scale Eye Opening: None Coma Scale Motor Response: None Coma Scale Verbal Response: None Coma Scale Total: 3 - Other Additional findings: On formal neurological examination Patient intubated and unresponsive to any verbal stimuli or to deep pain. He is off sedation more than 24 hours Pupils are fixed and dilated No corneal reflexes No gag reflex No breathing over the vent Cold calorics negative No spontaneous movement No withdrawal to the deep pain Results - Laboratory Findings CBC and BMP: 12/09/17 03:14 12/09/17 03:14 Abnormal lab findings: Abnormal lab results WBC 11.6 K/mcL (4.3-11.1) H 12/09/17 03:14 MPV 8.9 fL (9.4-12.4) L 12/09/17 03:14 Neutrophils # 9.3 K/mcL (1.6-8.9) H 12/09/17 03:14 APTT 100.7 Seconds (26.0-36.0) H D 12/07/17 18:30 ABG pH 7.48 pH Units (7.32-7.45) H 12/09/17 04:26 ABG pO2 70 mmHg (85-104) L 12/09/17 04:26 ABG Total CO2 28 mEq/L (20-26) H 12/09/17 04:26 Sodium 154 mEq/L (136-145) H D 12/09/17 03:14 Chloride 125 mEq/L (98-107) H 12/09/17 03:14 Creatinine 1.34 mg/dL (0.70-1.30) H 12/09/17 03:14 Est GFR (Non-Af Amer) 54 (> 60) L 12/09/17 03:14 Glucose 127 mg/dL (70-105) H 12/09/17 03:14 POC Glucose 129 mg/dL (70-99) H 12/08/17 23:34 Calculated Osmolality 320 (280-300) H 12/09/17 03:14 Phosphorus < 1.0 mg/dL (2.7-4.5) L* 12/09/17 03:14 Magnesium 2.7 mg/dL (1.6-2.6) H 12/09/17 03:14 AST 79 Units/L (13-39) H 12/08/17 04:35 ALT 100 Units/L (7-52) H 12/08/17 04:35 Troponin I 0.07 ng/mL (< 0.04) H* 12/08/17 10:22 Serum Total Protein 6.1 g/dL (6.4-8.9) L 12/08/17 04:35 Globulin 2.1 g/dL (2.4-3.5) L 12/08/17 04:35 Consult Discharge Plan - Plan Referrals: NONE,PCP [Primary Care Provider] -
[2017-12-09 09:30] LABS: Calcium 8.8 mg/dL (8.6-10.3); Potassium 4.1 mEq/L (3.5-5.1)
--- NOTE | 2017-12-09 09:36 | Cardiology Progress Note ---
Date of Encounter: 12/09/17 Time of Encounter: 09:29 Assessment and Plan (1) Cardiac arrest Current Visit: No Status: Acute Improved EKG on arrival to [facility] without significant ischemic changes. Dr Carrillo IC carbon capture power plant operator reviewed EKGs and findings stated LHC not indicated. Currently requiring pressure suppport, will discuss with neurology about prognosis of anoxic encephalopathy and possibility of LHC if favorable neuro outcome. EKG with non specific ST changes/flipped T wave V1-2 Discussed with family above findings. (2) Atrial fibrillation Current Visit: No Status: Acute Seems to be new onset but no records or family to obtain history from. Continue rate control and IV heparin if not contraindicated. On heparin and amiodarone NSR Qualifiers: Atrial fibrillation type: unspecified Qualified Code(s): I48.91 - Unspecified atrial fibrillation Discussion w patient/family: The assessment and plan as outlined above was discussed with the patient and/or family members who expressed understanding and agreement. All questions were answered. Thank you for involving us in the care of your patient. Please call with any questions. Subjective Principal diagnosis: unwitnessed arrest Interval history: Currently on amiodarone and pressors for hemodynamic support, neurology evaluating suggesting rare recovery after anoxic brain injury, troponins remain flat without peak as well as CK enzymes. ECHO reveals preserved EF 55% without RWMA. Objective Vital Signs, Last 4 Hours Temp Pulse Resp BP Pulse Ox 12/09/17 09:00 84 14 81/55 95 12/09/17 08:56 14 87/52 95 12/09/17 08:00 75 14 78/58 93 12/09/17 07:39 96.6 F L 12/09/17 07:15 16 77/56 92 12/09/17 07:00 78 16 73/56 92 12/09/17 06:00 96.9 F L 75 16 77/55 92 12/09/17 05:31 16 83/57 93 Cardiac: Reg Rate and Rhythm, Normal S1 and S2, No Murmur Lungs: Normal Breath Sounds, No Wheeze, Rales, Rhonchi Extremities: No Clubbing (intubated on vent ), No Cyanosis, No Edema, Normal Pulses Results 12/09/17 03:14 12/09/17 03:14 Lab Results 12/08/17 12/08/17 12/09/17 04:35 10:22 03:14 WBC Hgb Hct Plt Count Sodium 154 H D Potassium 3.8 Chloride 125 H Carbon Dioxide 24 BUN 14 Creatinine 1.34 H Glucose 127 H Calcium 10.0 Magnesium 2.7 H Total Bilirubin 0.5 AST 79 H ALT 100 H Alkaline Phosphatase 51 Troponin I 0.07 H* 12/09/17 03:14 WBC 11.6 H Hgb 15.3 Hct 44.3 Plt Count 186 Sodium Potassium Chloride Carbon Dioxide BUN Creatinine Glucose Calcium Magnesium Total Bilirubin AST ALT Alkaline Phosphatase Troponin I Consult Discharge Plan - Plan Referrals: NONE,PCP [Primary Care Provider] -
--- NOTE | 2017-12-09 11:46 | Pulmonology Progress Note ---
Date of Encounter: 12/09/17 Time of Encounter: 07:20 Assessment and Plan (1) Brain Current Visit: Yes Status: Acute I have personally talked with the radiologist and also neurologist and subsequently the daughter that patient is brain which means officially he will be DNR and daughter requested to keep him on life-support until she gets here. 12/09/2017 at 12:20 will be time of . (2) Anoxic brain injury Current Visit: Yes Status: Acute I have discussed with the neurologist and clinically he has poor prognosis and clinically he has evidence of brain . I have discussed with the LOOP and due to his hemodynamic instability apnea test cannot to be done and more confirmatory testing requested since his systolic blood pressure is low 90 mmHg even though his MAP above 65 mmHg. brain perfusion flow scan was ordered and after that the daughter will be notified. Critical care performed: Time is exclusive of separately billable procedures. Time includes: direct patient care, patient reassessment, coordination of patient care, interpretation of data (laboratory data, radiology data, and respiratory data), review of patient's medical records, medical consultation and documentation of patient care. Procedures excluded from critical care time: 35 (3) Acute respiratory failure with hypoxemia Current Visit: Yes Status: Acute Patient is requiring higher FiO2 and I went up on the and will adjust FiO2 based on his oxygen saturation. Goal is to keep perfusion and oxygenation as much as possible to preserve his organs (4) Cardiac arrest Current Visit: No Status: Acute Patient has been seen by metal melter. (5) Atrial fibrillation Current Visit: No Status: Acute Qualifiers: Atrial fibrillation type: unspecified Qualified Code(s): I48.91 - Unspecified atrial fibrillation (6) Acute hypernatremia Current Visit: Yes Status: Acute Patient will be given free water and need to be careful regarding volume because of his oxygenation. Bolus fluid was given which hopefully will help his prerenal acute kidney injury. Subjective Principal diagnosis: unwitnessed arrest Interval history: Patient is requiring more vasopressors and no meaningful neurological movements and not following any commands. Essentially patient is in coma. He is requiring higher FiO2 for hypoxia. Objective PUL Vital signs: Last Vital Signs Temp 96.6 F L 12/09/17 07:39 Pulse 87 12/09/17 10:00 Resp 14 12/09/17 11:16 BP 101/63 12/09/17 11:16 Pulse Ox 94 12/09/17 11:16 General appearance: no acute distress Eyes: nonicteric ENT: oropharynx moist Neck: supple Effort: normal Auscultation: bilateral: rhonchi Percussion: bilateral: not dull Cardiovascular: irregular rhythm Gastrointestinal: normoactive bowel sounds, non-distended Extremities: no cyanosis, no edema other (Reflexes are all negative and not following commands and GCS is 3) Ventilator Settings Ventilator Settings: Ventilator Settings, Last 8 Hours Ventilator Tidal Volume 550 Setting Ventilator Tidal Volume 550 Setting Ventilator Tidal Volume 550 Setting Ventilator Tidal Volume 550 Setting Ventilator Tidal Volume 550 Setting Ventilator Tidal Volume 550 Setting Ventilator Tidal Volume 550 Setting Ventilator Tidal Volume 550 Setting Ventilator Tidal Volume 550 Setting Ventilator Respiratory Rate 14 Setting Ventilator Respiratory Rate 14 Setting Ventilator Respiratory Rate 14 Setting Ventilator Respiratory Rate 16 Setting Ventilator Respiratory Rate 16 Setting Ventilator Respiratory Rate 16 Setting Ventilator Respiratory Rate 16 Setting Ventilator Respiratory Rate 16 Setting Ventilator Respiratory Rate 16 Setting Actual Respiratory Rate 14 Actual Respiratory Rate 14 Actual Respiratory Rate 14 Actual Respiratory Rate 16 Actual Respiratory Rate 16 Actual Respiratory Rate 16 Actual Respiratory Rate 16 Actual Respiratory Rate 16 Positive End Expiratory 8 Pressure Positive End Expiratory 8 Pressure Positive End Expiratory 8 Pressure Positive End Expiratory 5 Pressure Positive End Expiratory 5 Pressure Positive End Expiratory 5 Pressure Positive End Expiratory 5 Pressure Positive End Expiratory 5 Pressure Positive End Expiratory 5 Pressure Peak Inspiratory Airway 32 Pressure Peak Inspiratory Airway 34 Pressure Peak Inspiratory Airway 80 Pressure Peak Inspiratory Airway 34 Pressure Peak Inspiratory Airway 32 Pressure Peak Inspiratory Airway 30 Pressure Peak Inspiratory Airway 28 Pressure Peak Inspiratory Airway 28 Pressure Results - Laboratory Findings CBC and BMP: 12/09/17 03:14 12/09/17 09:00 ABG ABG pH 7.48 pH Units (7.32-7.45) H 12/09/17 04:26 ABG pCO2 35 mmHg (35-45) 12/09/17 04:26 ABG pO2 70 mmHg (85-104) L 12/09/17 04:26 ABG O2 Saturation 95 % (95-98) 12/09/17 04:26 PT/INR, D-dimer PT 12.1 Seconds (9.4-12.1) 12/07/17 21:07 Abnormal lab findings: Abnormal lab results WBC 11.6 K/mcL (4.3-11.1) H 12/09/17 03:14 MPV 8.9 fL (9.4-12.4) L 12/09/17 03:14 Neutrophils # 9.3 K/mcL (1.6-8.9) H 12/09/17 03:14 APTT 100.7 Seconds (26.0-36.0) H D 12/07/17 18:30 ABG pH 7.48 pH Units (7.32-7.45) H 12/09/17 04:26 ABG pO2 70 mmHg (85-104) L 12/09/17 04:26 ABG Total CO2 28 mEq/L (20-26) H 12/09/17 04:26 Sodium 153 mEq/L (136-145) H 12/09/17 09:00 Chloride 120 mEq/L (98-107) H 12/09/17 09:00 Creatinine 1.72 mg/dL (0.70-1.30) H 12/09/17 09:00 Est GFR ( Amer) 49 (> 60) L 12/09/17 09:00 Est GFR (Non-Af Amer) 41 (> 60) L 12/09/17 09:00 Glucose 129 mg/dL (70-105) H 12/09/17 09:00 POC Glucose 117 mg/dL (70-99) H 12/09/17 11:25 Calculated Osmolality 319 (280-300) H 12/09/17 09:00 Phosphorus < 1.0 mg/dL (2.7-4.5) L* 12/09/17 03:14 Magnesium 2.7 mg/dL (1.6-2.6) H 12/09/17 03:14 AST 79 Units/L (13-39) H 12/08/17 04:35 ALT 100 Units/L (7-52) H 12/08/17 04:35 Troponin I 0.07 ng/mL (< 0.04) H* 12/08/17 10:22 Serum Total Protein 6.1 g/dL (6.4-8.9) L 12/08/17 04:35 Globulin 2.1 g/dL (2.4-3.5) L 12/08/17 04:35 - Microbiology Findings Microbiology Findings: Microbiology, Last 48 Hours 12/08/17 07:03 Blood Culture - Preliminary Peripheral Venipuncture Culture is incubating and being continuously monitored for growth. Final report to follow. 12/08/17 07:03 Blood Culture - Preliminary Peripheral Venipuncture Culture is incubating and being continuously monitored for growth. Final report to follow. - Clinical Findings Intake & Output: Intake & Output 12/08/17 12/09/17 12/09/17 23:59 07:59 15:59 Intake Total 360 / 360 2395 / 2395 500 / 500 Output Total 3150 / 3150 850 / 850 Balance -2790 / -2790 1545 / 1545 500 / 500 Weight 80 kg Consult Discharge Plan - Plan Referrals: NONE,PCP [Primary Care Provider] -
[2017-12-09] MEDS: Norepinephrine 8 MG in D5% in Water 250 ML IVC SCH ×2 (14:05→20:17)
[2017-12-09] MEDS: FentaNYL (PF) 1,000 MCG in 0.9 % Sodium Chloride 80 ML IVC SCH (19:23)
[2017-12-10] MEDS: Lacri-Lube 3.5 GM TUBE BOTH EYES SCH ×4 (00:17→14:48)
[2017-12-10] MEDS: Ampicillin/Sulbactam 3,000 MG in 0.9 % Sodium Chloride Mini Bag 100 ML IVPB SCH ×3 (01:56→14:48)
[2017-12-10] MEDS: Norepinephrine 8 MG in D5% in Water 250 ML IVC SCH ×3 (02:36→14:00)
[2017-12-10] MEDS: Heparin 25,000 UNIT/500 ML D5W 25,000 UNIT/500 ML BAG IVC SCH (02:37)
[2017-12-10 03:51] LABS: VBG Ionized Calcium 1.17 mmol/L (1.15-1.35)
[2017-12-10 03:53] LABS: ABG Base Excess 2 mEq/L (-2 to 3); ABG HCO3 31 mEq/L (21-27); ABG Oxygen Saturation 85 % (95-98); ABG PCO2 66 mmHg (35-45); ABG PH 7.27 pH Units (7.32-7.45); ABG PO2 58 mmHg (85-104); ABG TCO2 33 mEq/L (20-26); Blood Gas Modality VC; Blood Gas Respiration Rate 14; Blood Gas VT 550 cc
[2017-12-10 03:55] LABS: Hematocrit 45.3 % (37.5-50.1); Hemoglobin 15.1 g/dL (12.9-16.9); Immature Platelets 3.1 % (1.1-6.1); Mean Corpuscular HGB Conc 33.3 g/dL (31.6-35.5); Mean Corpuscular Hemoglobin 29.7 pg (28.0-33.3); Mean Corpuscular Volume 89.2 fL (83.0-100.0); Mean Platelet Volume 9.4 fL (9.4-12.4); Platelet Count 190 K/mcL (140-400); Red Blood Count 5.08 M/mcL (4.19-5.50); Red Cell Distribution Width 14.4 % (11.5-14.5)
[2017-12-10 04:13] LABS: Calcium 8.8 mg/dL (8.6-10.3); Magnesium 2.2 mg/dL (1.6-2.6); Phosphorous 5.2 mg/dL (2.7-4.5)
[2017-12-10 04:28] LABS: Lymphocytes # 1.6 K/mcL (0.6-4.6); Neutrophils # 12.2 K/mcL (1.6-8.9); Platelet Estimate Normal (Normal); Reactive Lymphocytes Present (Not Present); Toxic Granulation Present (Not Present)
[2017-12-10] MEDS: Amiodarone Premix 360 MG/200 ML BAG IVC SCH (04:43)
[2017-12-10] MEDS: Pantoprazole 40 MG VIAL IVP SCH (08:02)
[2017-12-10] MEDS: Chlorhexidine Rinse 15 ML MOUTHWASH MM SCH (08:02)
[2017-12-10] MEDS ORDERED: D5% in Water 1,000 ML IVC SCH (08:15)
--- NOTE | 2017-12-10 10:45 | Death Note ---
<Erlinda Brady M - Last Filed: 12/10/17 12:57> Discharge Sum: Summary - Date and Time Date of admission: 12/07/17 17:24 - Additional Data Attending physician: Genie Spence Discharge Sum: Prov - Provider Primary care physician: PCP NONE Consults: 12/08/17 07:33 Consult to Critical Care [CONS] Stat Consulting Provider: [facility] Reason for Consult: intubated Call Completed: No Consult to Neurology [CONS] Routine Consulting Provider: [facility] Reason for Consult: s/p cardiac arrest, possible anoxic brain injury Call Completed: Yes 12/08/17 10:37 Consult to Interpret Exam [CONS] Routine Consulting Provider: Munira Mtz I Consult to Interpret Exam: Interpret EEG 12/08/17 13:46 Consult to Cardiology [CONS] Routine Comment: Consulting Provider: [facility] Reason for Consult: Cardiac arrest Time Notified: 13:48 Call Completed: Yes - Attending Attestation I examined this patient and my medical decision-making was reviewed with the Resident Physician. I agree with the documented findings, disposition and treatment plan as described except to the extent set forth below. Patient seen and examined. Labs, radiology, chart personally reviewed. Agree with resident's discharge note. Patient unfortunately had cardiac arrest and subsequently he drained the after cardiac arrest and this was discussed with the daughter and patient was declared that yesterday after extensive testing and organ donation has been admitted bedside Discharge summary took more than 30 minutes <Barbara Epstein N - Last Filed: 12/10/17 14:10> Discharge Sum: Summary - Date and Time Date of admission: 12/07/17 17:24 Date of : 12/09/17 Time of : 12:20 - Summary Details: Mr. Pablito Duff is a 62-year-old male who was found unresponsive in the field. He was transferred to the [place] emergency department and ACLS protocol was initiated. He was intubated and received epinephrine and was converted into A. fib. He was started on an amiodarone drip and transferred to [facility]. On arrival he did not receive cardiac catheterization as he did not meet criteria and he was out of the window for hypothermia protocol. He was maintained on an amiodarone drip as well as a heparin drip during his stay in the ICU. During his admission he also experienced hypotension with MAP below 60, a central line was inserted and he was started on vasopressors. On arrival the patient's pupils were fixed and dilated, he had no neurological reflexes, and he did not respond to any stimuli. Neurology was consulted and confirmed our findings, an EEG was ordered which indicated possible anoxic injury. A brain flow nuclear medicine study was subsequently performed the next day (12/09/2017) which showed absent cerebral perfusion supporting the clinical diagnosis of brain . Family was contacted, BIJU is her daughter who was out of state and will arrive to see the patient today (12/10/2017). Loop will visit with the patient's family to discuss the possibility of organ donation. - Additional Data Confirmation of as documented by pronouncing clinician: no pulse, no respirations, no heart sounds, pupils fixed and dilated Family: contacted Attending/PCP notified?: No Attending physician: Erlinda Brady MD Was code activated?: No Autopsy requested?: No forensic examiner notified?: No Organ bank notified?: Yes (Loop will talk to family) Advance directives: No Hospice patient?: No Discharge Sum: Diag - PCOD Probable Cause of : Cardiac arrest Discharge Sum: Prov - Provider Primary care physician: PCP NONE Admitting clinician: Genie Spence Attending physician on admission: Erlinda Brady Consults: 12/08/17 07:33 Consult to Critical Care [CONS] Stat Consulting Provider: [facility] Reason for Consult: intubated Call Completed: No Consult to Neurology [CONS] Routine Consulting Provider: [facility] Reason for Consult: s/p cardiac arrest, possible anoxic brain injury Call Completed: Yes 12/08/17 10:37 Consult to Interpret Exam [CONS] Routine Consulting Provider: Munira Mtz I Consult to Interpret Exam: Interpret EEG 12/08/17 13:46 Consult to Cardiology [CONS] Routine Comment: Consulting Provider: [facility] Reason for Consult: Cardiac arrest Time Notified: 13:48 Call Completed: Yes Pronouncing clinician: Erlinda Brady
[2017-12-10 16:16] VITALS: BP 86/57
--- NOTE | 2017-12-10 17:39 | Electrocardiograph Report ---
[address] [place], [place] [address] Test Date: 2017-12-08 Pat Name: Pablito Duff Department: 109 Room: [facility] Gender: M [employer]: : 1955 Requested By: Giuseppe James Order Number: [id number] Reading MD: Anil Lezama Measurements Intervals [place] Rate: 70 P: -79 WI: 113 QRS: 60 QRSD: 86 T: 80 QT: 505 QTc: 525 Interpretive Statements ECTOPIC ATRIAL RHYTHM PROLONGED QT INTERVAL Electronically Signed On 12-10-2017 17:37:41 EDT by Anil Lezama
== END 2017-12-09 12:20 | disposition expired | DRG 208 ==
LOC: EDBD → ICNU 17:24 → EDBD 17:24
PROVIDERS: ADMIT Internal Medicine Nephrology; ATTEND Internal Medicine Nephrology

== ENCOUNTER 2017-12-10 15:56 | Inpatient (IN) ==
[2017-12-10] MEDS ORDERED: Vasopressin 40 UNIT in D5% in Water 100 ML IV SCH (16:30)
[2017-12-10] MEDS ORDERED: Ringers Solution, Lactated 1,000 ML IVC ONE (16:33)
[2017-12-10] MEDS ORDERED: 0.9 % Sodium Chloride 500 ML ONE (16:34)
[2017-12-10] MEDS ORDERED: Ringers Solution, Lactated 1,000 ML ONE (16:34)
--- NOTE | 2017-12-10 16:53 | Procedure Note ---
<Barbara Epstein - Last Filed: 12/10/17 16:50> Date of procedure: 12/10/17 Pre-op diagnosis: Organ Donation Candidate Post-op diagnosis: same Procedure: Indication: Hemodynamic monitoring Resident: Dr. Barbara Epstein DO Attending: Dr. Erlinda Brady MD A time-out was completed verifying correct patient, procedure, site, positioning , and special equipment if applicable. The patients right wrist was prepped and draped in sterile fashion. A 18G Arrow arterial line was introduced into the radial artery. The catheter was threaded over the guide wire and the needle was removed with appropriate pulsatile blood return. The catheter was then taped in place to the skin and a sterile dressing applied. Estimated Blood Loss: 5cc The patient tolerated the procedure well and there were no complications. Anesthesia: none Surgeon: Barbara Epstein Was there an printer floor covering assistant present: Yes Cutter Operator Helper: Giuseppe James Estimated blood loss (cc): 5 Specimen: none Pathology: none sent Condition: Disposition: ICU <Erlinda Brady M - Last Filed: 12/11/17 10:53> Procedure: I examined this patient and my medical decision-making was reviewed with the Resident Physician. I agree with the documented findings, disposition and treatment plan as described except to the extent set forth below. Patient needed A-line that was requested by LOOP and that was done without immediate complications and discussed with resident on 12/10/2017.
[2017-12-10] MEDS ORDERED: *HR* Dextrose 50 % in Water (Syg) 50 ML SYRINGE IVP ONE (17:29)
[2017-12-10] MEDS ORDERED: Insulin Human Regular 20 UNIT in 0.9 % Sodium Chloride 10 ML IV ONE (17:30)
[2017-12-10] MEDS ORDERED: methylPREDNISolone 125 MG/2 ML VIAL IVP ONE (17:31)
[2017-12-10] MEDS ORDERED: Levothyroxine Sodium 200 MCG VIAL IVP ONE (17:32)
[2017-12-10] MEDS ORDERED: SODIUM CHLORIDE 0.9% IV SCH (18:00)
[2017-12-10] MEDS ORDERED: LEVOTHYROXINE SODIUM IV SCH (18:00)
[2017-12-10] MEDS: Norepinephrine 8 MG in D5% in Water 250 ML IVC SCH (18:31)
[2017-12-10 20:47] LABS: ABG Base Excess 1 mEq/L (-2 to 3); ABG HCO3 29 mEq/L (21-27); ABG Oxygen Saturation 82 % (95-98); ABG PCO2 58 mmHg (35-45); ABG PO2 52 mmHg (85-104); ABG TCO2 30 mEq/L (20-26); Blood Gas Modality PRVC; Blood Gas Respiration Rate 18; Blood Gas VT 550 cc
[2017-12-10] MEDS ORDERED: *HR* Vecuronium 10 MG VIAL IVP ONE ×2 (20:55→23:02)
[2017-12-10 21:23] LABS: Hemoglobin 14.5 g/dL (12.9-16.9)
[2017-12-10 21:24] LABS: Hematocrit 43.3 % (37.5-50.1); Immature Platelets 2.9 % (1.1-6.1); Mean Corpuscular HGB Conc 33.5 g/dL (31.6-35.5); Mean Corpuscular Hemoglobin 29.5 pg (28.0-33.3); Mean Corpuscular Volume 88.2 fL (83.0-100.0); Mean Platelet Volume 9.1 fL (9.4-12.4); Red Blood Count 4.91 M/mcL (4.19-5.50); Red Cell Distribution Width 14.6 % (11.5-14.5)
[2017-12-10 21:31] LABS: INR 1.6; Prothrombin Time 17.9 Seconds (9.4-12.1)
[2017-12-10 21:34] LABS: Activated Partial Thrombo Time 34.1 Seconds (26.0-36.0)
[2017-12-10 21:35] LABS: Bilirubin,Urine Negative (Negative); Blood,Urine Large (Negative); Clarity,Urine Cloudy (Clear); Color,Urine Yellow (Yellow); Glucose,Urine (UA) Normal (Normal); Ketones,Urine Negative (Negative); Leukocyte Esterase,Urine Negative (Negative); Nitrite,Urine Negative (Negative); Protein,Urine 30 mg/dL (Neg-Trace); Specific Gravity,Urine 1.014 (1.010-1.025); Urobilinogen,Urine Normal (Normal)
[2017-12-10] MEDS: 0.45 % Sodium Chloride w/KCl 20 MEQ/1,000 ML MLS IVC SCH (21:35)
[2017-12-10 21:42] LABS: Hyaline Casts,Urine None Seen per lpf (None-Few); RBC,Urine 15-30 per hpf (0-3); Squamous Epithelial Cell,Urine Moderate per lpf (None-Few)
[2017-12-10 21:45] LABS: Albumin/Globulin Ratio 1.3 (1.1-2.2); Bilirubin,Direct 0.3 mg/dL (0.0-0.2); Bilirubin,Indirect 0.5 mg/dL (0.0-1.2); Bilirubin,Total 0.8 mg/dL (0.3-1.0); Globulin 2.4 g/dL (2.4-3.5); Total Protein 5.4 g/dL (6.4-8.9)
[2017-12-10 21:46] LABS: Albumin/Globulin Ratio 1.2 (1.1-2.2); Bilirubin,Total 0.8 mg/dL (0.3-1.0); Calcium 8.6 mg/dL (8.6-10.3); Globulin 2.6 g/dL (2.4-3.5); Potassium 3.5 mEq/L (3.5-5.1); Total Protein 5.6 g/dL (6.4-8.9)
[2017-12-10 22:06] LABS: Bacteria,Urine Moderate per hpf (None-Few); Yeast,Urine Few per hpf (None Seen)
[2017-12-10 22:14] LABS: ABG Base Excess 1 mEq/L (-2 to 3); ABG HCO3 30 mEq/L (21-27); ABG Oxygen Saturation 82 % (95-98); ABG PCO2 64 mmHg (35-45); ABG PH 7.27 pH Units (7.32-7.45); ABG PO2 54 mmHg (85-104); ABG TCO2 32 mEq/L (20-26); Blood Gas Modality PRVC; Blood Gas Respiration Rate 18; Blood Gas VT 450 cc
[2017-12-10] MEDS ORDERED: Ringers Solution, Lactated 500 ML IVC ONE (23:01)
[2017-12-10] MEDS ORDERED: *HR* Vecuronium 10 MG VIAL ONE (23:02)
[2017-12-10 23:36] LABS: ABG Base Excess 3 mEq/L (-2 to 3); ABG HCO3 29 mEq/L (21-27); ABG Oxygen Saturation 86 % (95-98); ABG PCO2 51 mmHg (35-45); ABG PH 7.37 pH Units (7.32-7.45); ABG PO2 54 mmHg (85-104); ABG TCO2 31 mEq/L (20-26); Blood Gas Modality PRVC; Blood Gas Respiration Rate 30; Blood Gas VT 450 cc
[2017-12-11] MEDS ORDERED: Potassium Chloride 40 MEQ/200 ML BAG IVPB ONE (00:15)
[2017-12-11] MEDS: Norepinephrine 8 MG in D5% in Water 250 ML IVC SCH (00:23)
[2017-12-11 00:30] LABS: Albumin 2.7 g/dL (3.5-5.7); Albumin/Globulin Ratio 1.2 (1.1-2.2); Calcium 8.2 mg/dL (8.6-10.3); Globulin 2.2 g/dL (2.4-3.5); Potassium 3.7 mEq/L (3.5-5.1); Total Protein 4.9 g/dL (6.4-8.9)
[2017-12-11 01:26] LABS: ABG Base Excess 3 mEq/L (-2 to 3); ABG HCO3 28 mEq/L (21-27); ABG Oxygen Saturation 85 % (95-98); ABG PCO2 45 mmHg (35-45); ABG PO2 50 mmHg (85-104); ABG TCO2 29 mEq/L (20-26); Blood Gas Modality PRVC; Blood Gas Respiration Rate 30; Blood Gas VT 450 cc
[2017-12-11] MEDS: 0.45 % Sodium Chloride w/KCl 20 MEQ/1,000 ML MLS IVC SCH (06:08)
--- NOTE | 2017-12-11 08:32 | Event Note ---
<Barbara Epstein N - Last Filed: 12/11/17 10:03> Date of Encounter: 12/11/17 Time of Encounter: 10:03 Per nursing staff LOOP deemed the patient to not be a candidate for organ transplant as he had suffered hypoxic injury and his organs are no longer viable for transplant. Daughter was informed that the patient is not a candidate for organ transplant. Patient remains the ICU as close family and friends would like to see him today before we withdraw care. Plan is to withdraw care and transport the patient out of the ICU later today. <Erlinda Brady M - Last Filed: 12/11/17 11:38> Date of Encounter: 12/11/17 I examined this patient and my medical decision-making was reviewed with the Resident Physician. I agree with the documented findings, disposition and treatment plan as described except to the extent set forth below. Discussed with the daughter about organ donation disposition since his condition is deteriorating and family visited and as soon as they see patient then can be extubated.
[2017-12-11 12:28] VITALS: BP 134/72
== END 2017-12-11 13:32 | disposition expired | DRG 951 ==
LOC: ICNU 15:56
PROVIDERS: ADMIT Internal Medicine; ATTEND Internal Medicine